=== PATIENT | female | born 1970 | race Two or more races ===

== ENCOUNTER → 2025-01-17 11:19 | Outpatient (REF) | payer BC, SELFPAY | LOC: HWRCS 11:19 | PROVIDERS: ATTENDING PHYSICIAN Nuclear Medicine Nuclear Cardiology; FAMILY PHYSICIAN Family Medicine | DX: I10 Essential (primary) hypertension (principal); R94.31 Abnormal electrocardiogram [ECG] [EKG]; Z82.49 Family history of ischemic heart disease and other diseases of the circulatory system; R07.9 Chest pain, unspecified; R06.02 Shortness of breath; R55 Syncope and collapse | CPT/HCPCS: 93306 ==